=== PATIENT | male | born 1975 | race Caucasian/White ===

== ENCOUNTER 2021-10-26 11:28 | Emergency (ER) | payer OTHER ==
[2021-10-26 11:35] VITALS: BP 154/89; PULSE 76; RESP 18; TEMP 98.2
--- NOTE | 2021-10-26 12:33 | XR ---
EXAMINATION TYPE: XR KUB DATE OF EXAM: 10/26/2021 COMPARISON: NONE HISTORY: Pain TECHNIQUE: One view abdominal series FINDINGS: The osseous structures are intact. The bowel gas pattern is nonspecific. There is a calcification al hair the left paraspinal level between the transverse process of L3 and L4 measuring a diameter of 6 m m. No suspicious calcifications overlying the right or left renal outline. Calcifications in the pelvis are nonspecific but likely vascular. 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 Hypertrophic changes involving the vertebral column with degenerative disc disease. IMPRESSION: 1. Suspect a mid left ureteral calculus measuring diameter is 6 mm.
--- NOTE | 2021-10-26 13:42 | ED ---
General Adult HPI - General Chief complaint: Abdominal Pain Stated complaint: Kidney stone Time Seen by Provider: 10/26/21 13:01 Source: patient, family, RN notes reviewed Mode of arrival: ambulatory Limitations: no limitations - History of Present Illness Initial comments: Patient seen in triage room secondary to no beds. Patient is a pleasant 46-year-old male presenting to the emergency department with concerns with of kidney stone. Patient had hematuria just over a month ago and computed tomography scan did show a kidney stone. Patient started d eveloping discomfort yesterday. Discomfort was somewhat severe yesterday. Patient was given pain medicine at a outside facility, [facility]. Patient states discomfort at this time is minimal, almost not present. Patient denies ever having any fevers. Patient was advised from outside facility that we do have urologist available here. - Related Data Previous Rx's Medication Instructions Recorded Ketorolac [Toradol] 10 mg PO Q6HR PRN #15 tab 10/26/21 Allergies Allergy/AdvReac Type Severity Reaction Status Date / Time No Known Allergies Allergy Verified 10/26/21 11:35 Review of Systems ROS Statement: Those systems with pertinent positive or pertinent negative responses have been documented in the HPI. ROS Other: All systems not noted in ROS Statement are negative. Constitutional: Denies: fever, chills Eyes: Denies: eye pain ENT: Denies: ear pain Respiratory: Denies: cough Cardiovascular: Denies: chest pain Endocrine: Denies: fatigue Gastrointestinal: Reports: as per HPI, abdominal pain Genitourinary: Reports: as per HPI. Denies: dysuria Musculoskeletal: Denies: back pain Skin: Denies: rash Neurological: Denies: weakness Past Medical History Past Medical History: Hyperlipidemia, Hypertension Past Surgical History: Orthopedic Surgery Past Psychological History: No Psychological Hx Reported Smoking Status: Never smoker Past Alcohol Use History: None Reported Past Drug Use History: None Reported General Exam Limitations: no limitations General appearance: alert, in no apparent distress Head exam: Present: normocephalic Eye exam: Present: normal appearance Neck exam: Present: normal inspection Respiratory exam: Present: normal lung sounds bilaterally Cardiovascular Exam: Present: regular rate, normal rhythm GI/Abdominal exam: Present: soft. Absent: distended, tenderness Extremities exam: Present: normal inspection Back exam: Present: normal inspection. Absent: CVA tenderness (R), CVA tenderness (L) Neurological exam: Present: alert Psychiatric exam: Present: normal affect, normal mood Skin exam: Present: normal color Course Vital Signs 10/26/21 11:30 Temperature 98.2 F Pulse Rate 76 Respiratory 18 Rate Blood Pressure 154/89 O2 Sat by Pulse 99 Oximetry Medical Decision Making - Medical Decision Making Discussion had with patient regarding his symptoms and recent workup. Patient is offered further evaluation including further imaging and blood work and urinalysis. Patient states he is feeling fine at this time and does not feel this is necessary which does seem reasonable. Patient is agreeable with close follow-up with urology and they will be provided number. - Radiology Data Radiology results: image reviewed (KUB shows left mid ureter stone, approximately 6 mm) Disposition Clinical Impression: Ureterolithiasis Disposition: HOME SELF-CARE Condition: Stable Instructions (If sedation given, give patient instructions): Kidney Stones (ED) Additional Instructions: Please follow-up with primary care physician and urology in the next couple days for recheck. Return for fever, increased pain, worsening or changing symptoms or other concerns. Prescriptions: Ketorolac [Toradol] 10 mg PO Q6HR PRN #15 tab PRN Reason: Pain Is patient prescribed a controlled substance at d/c from ED?: No Referrals: Daniel Allen DO [Primary Care Provider] - 1-2 days Akbar Tejada MD [STAFF PHYSICIAN] - 1-2 days Time of Disposition: 13:42
== END 2021-10-26 13:59 | disposition home or self-care (01) ==
LOC: EC 11:28
DX: N20.1 Calculus of ureter (principal); I10 Essential (primary) hypertension; E78.5 Hyperlipidemia, unspecified
CPT/HCPCS: 74018; 99284